=== PATIENT | male | born 1980 | race Caucasian/White ===

== ENCOUNTER → 2016-10-16 | Day surgery (SDC) | payer OTHER ==
[~2016-10-16] VITALS: Ht 185.4 cm; Wt 117.9 kg
[~2016-10-16] MED LIST: 0.9% Sodium Chloride 1,000 ML IV SCH; ASCO250T7 PO; CYAN50002 SL; EZET10TA PO; NEBI10TA2 PO; OMEG-38 PO; RED600CA2 PO; Sodium Chloride LOK Flush 10 mL Syringe IV PRN; fentaNYL-PF 50 mCg/mL 2 mL Inj IVPUSH PRN
[2016-10-16 11:10] VITALS: BP 120/67; PULSE 58; RESP 14; O2SAT 98
[2016-10-16 12:17] VITALS: BP 121/66; PULSE 62; RESP 16; O2SAT 95
[2016-10-16 12:27] VITALS: BP 106/60; PULSE 56; RESP 16; O2SAT 95
--- NOTE | 2016-10-16 13:24 | ENDO ---
[address] [address] ENDOSCOPY PROCEDURE PATIENT: PERCY LANIER : 1980 MR#: [id number] ADMIT: 10/16/2016 JOB ID: [id number] DATE: 10/16/2016 TYPE OF OPERATION: Colonoscopy with biopsy. PREOPERATIVE DIAGNOSIS(ES): Diarrhea. POSTOPERATIVE DIAGNOSIS(ES): Normal colonoscopy status post biopsy. ANESTHESIA: 1. Fentanyl 125 mcg. 2. Versed 6 mg IV administered. COMPLICATION: None. BLOOD LOSS: Minimal. DESCRIPTION OF PROCEDURE: After risks and benefits were explained to the patient, informed consent was obtained. After anesthesia administered, colonoscope was inserted from the rectum to the cecum to the terminal. Mucosa was carefully examined. Prep of the patient was excellent. After the procedure was done, the scope withdrawn and procedure terminated. FINDINGS: Upon inspection of the anus, no masses, hemorrhoids, ulcers are seen. Throughout the entire examination, no polyps, masses or lesions. Biopsies taken of the terminal ileum and random colon. Retroflexion normal. IMPRESSION: Normal colonoscopy status post biopsy. RECOMMENDATION: 1. Await pathology results. 2. Followup in GI clinic as needed.
--- NOTE | 2016-10-20 16:48 | PATH ---
SURGICAL PATHOLOGY Attending Physician:Gagandeep Rodrigez MD CASE STATUS: Signed Out PATIENT NAME: PERCY LANIER PID: [id number] : 1980 DATE COLLECTED:10/16/2016 20:07 SPECIMEN: 1: Ileum, Biopsy 2: Colon, Biopsy CLINICAL HISTORY: CHANGE IN BOWEL HABITS 1). TERMINAL ILEUM BIOPSY 2). RANDOM COLON BIOPSY FINAL DIAGNOSIS: 1.TERMINAL ILEUM, BIOPSY: SMALL BOWEL MUCOSA WITH NO DIAGNOSTIC ABNORMALITY. Negative for active inflammation, dysplasia, and malignancy. 2.RANDOM COLON, BIOPSY: COLONIC MUCOSA WITH NO DIAGNOSTIC ABNORMALITY. Negative for active, chronic and microscopic colitis. Negative for dysplasia and malignancy. ICD10 R19.4 GROSS DESCRIPTION: The specimen is received in two formalin filled containers labeled with the patient's name. 1). The specimen is labeled "TI" and consists of 2 portions of tissue which aggregate to 0.3 x 0.3 x 0.2 CM. The specimen is entirely submitted in cassette 1A. 2). The specimen is labeled "random colon" and consists of multiple portions of tissue which aggregate to 0.4 x 0.4 x 0.2 CM. The specimen is totally submitted in cassette 2A. 10/16/2016DC MICRO DESCRIPTION: See diagnosis. ICD-9 CODES: CPT CODES: 1: 16103 2: 44664 Electronically Signed Out Sridhar Staples MD, Ph.D. [facility] [address], [place] [address] Technical component performed at [facility], [facility] [address], [address]
== END | disposition home or self-care (01) ==
LOC: END 00:39
PROVIDERS: ATTEND Internal Medicine Gastroenterology
DX: R19.5 Other fecal abnormalities (principal); Z79.899 Other long term (current) drug therapy; Z87.891 Personal history of nicotine dependence